=== PATIENT | male | born 1965 | race African-American/Black ===

== ENCOUNTER 2017-04-18 13:57 | Emergency (ER) | payer OTHER ==
[2017-04-18] MEDS ORDERED: predniSONE 20 MG TAB ONE (14:21)
[2017-04-18] MEDS ORDERED: Amoxicillin/Potassium Clav 875 MG TAB ONE (14:21)
[2017-04-18] MEDS ORDERED: Ibuprofen 800 MG TAB ONE (14:21)
== END 2017-04-18 14:27 | disposition home or self-care (01) ==
LOC: NAV ERS 13:57
DX: K02.9 Dental caries, unspecified (principal); M10.9 Gout, unspecified; Z79.899 Other long term (current) drug therapy
CPT/HCPCS: 99283; J7506

== ENCOUNTER 2019-04-10 12:50 | Emergency (ER) | payer OTHER ==
[2019-04-10] MEDS ORDERED: Acetaminophen/Codeine 30-300mg Tablet ONE (14:06)
[2019-04-10] MEDS ORDERED: predniSONE 20 MG TAB ONE (14:07)
== END 2019-04-10 14:30 | disposition home or self-care (01) ==
LOC: NAV ERS 12:50
DX: M10.9 Gout, unspecified (principal); I10 Essential (primary) hypertension; E78.5 Hyperlipidemia, unspecified; Z79.899 Other long term (current) drug therapy
CPT/HCPCS: 99283; J7512

== ENCOUNTER 2019-09-13 10:05 | Emergency (ER) | payer OTHER | END 2019-09-13 10:48 | disposition home or self-care (01) | LOC: NAV ERS 10:05 | DX: M10.9 Gout, unspecified (principal); I10 Essential (primary) hypertension; E78.5 Hyperlipidemia, unspecified; Z79.899 Other long term (current) drug therapy | CPT/HCPCS: 99283 ==

== ENCOUNTER 2019-12-29 11:22 | Emergency (ER) | payer OTHER ==
[2019-12-29] MEDS ORDERED: predniSONE 20 MG TAB ONE (11:45)
[2019-12-29] MEDS ORDERED: HYDROcodone/Acetaminophen 5/325 mg Tablet ONE (11:53)
== END 2019-12-29 12:00 | disposition home or self-care (01) ==
LOC: NAV ERS 11:22
DX: M10.9 Gout, unspecified (principal); I10 Essential (primary) hypertension; E78.5 Hyperlipidemia, unspecified
CPT/HCPCS: 99283; J7512

== ENCOUNTER 2024-02-24 09:48 | Emergency (ER) | payer OTHER, SELFPAY ==
[2024-02-24] MEDS ORDERED: Metoprolol Tartrate 50 MG TAB ONE (10:23)
[2024-02-24] MEDS ORDERED: Ketorolac Tromethamine 60 MG/2 ML VIAL ONE (10:23)
== END 2024-02-24 11:15 | disposition home or self-care (01) ==
LOC: NAV ERS 09:48
DX: M10.9 Gout, unspecified (principal); I10 Essential (primary) hypertension
CPT/HCPCS: 96372; 99283; J1885

== ENCOUNTER 2025-03-09 09:12 | Emergency (ER) | payer OTHER | END 2025-03-09 10:34 | disposition home or self-care (01) | LOC: NAV ERS 09:12 | DX: M10.9 Gout, unspecified (principal); I10 Essential (primary) hypertension; Z91.148 Patient's other noncompliance with medication regimen for other reason | CPT/HCPCS: 96372; 99283; J1885 ==

== ENCOUNTER 2025-04-01 11:55 | Emergency (ER) | payer OTHER ==
[2025-04-01] MEDS ORDERED: Dexamethasone 10 MG/ML VIAL ONE (12:36)
== END 2025-04-01 12:43 | disposition home or self-care (01) ==
LOC: NAV ERS 11:55
DX: M10.9 Gout, unspecified (principal); I10 Essential (primary) hypertension; Z79.899 Other long term (current) drug therapy
CPT/HCPCS: 99283; J1100

== ENCOUNTER 2025-04-26 11:24 | Emergency (ER) | payer OTHER ==
[2025-04-26] MEDS ORDERED: predniSONE 20 MG TAB ONE (11:51)
== END 2025-04-26 12:02 | disposition home or self-care (01) ==
LOC: NAV ERS 11:24
DX: M10.9 Gout, unspecified (principal); I10 Essential (primary) hypertension
CPT/HCPCS: J7512

== ENCOUNTER 2025-05-19 11:27 | Emergency (ER) | payer OTHER | END 2025-05-19 12:23 | disposition home or self-care (01) | LOC: NAV ERS 11:27 | DX: M10.9 Gout, unspecified (principal) | CPT/HCPCS: 96372; 99283; J1100 ==